=== PATIENT | male | born 1955 | race African-American/Black ===

== ENCOUNTER 2018-04-23 06:45 | Day surgery (SDC) | payer OTHER ==
[~2018-04-23] VITALS: Ht 175.3 cm; Wt 88.8 kg
[2018-04-23] MEDS ORDERED: IOHEXOL 350 MG/ML 100 ML BTL (for Cath Lab) OTHER ONE (06:46)
[2018-04-23 07:15] VITALS: BP 122/71; PULSE 53; RESP 18; O2SAT 98
[2018-04-23 07:38] LABS: BASOPHIL # 0.1 TH/MM3 (0-0.2); BASOPHIL % 0.7 % (0.0-2.0); EOSINOPHIL # 0.2 TH/MM3 (0-0.4); EOSINOPHIL % 2.4 % (0.0-4.0); HEMATOCRIT 48.5 % (39.0-51.0); HEMOGLOBIN 16.4 GM/DL (13.0-17.0); LYMPH % 29.6 % (9.0-44.0); LYMPHOCYTE # 2.1 TH/MM3 (1.0-4.8); MEAN CELL VOLUME 85.9 FL (80.0-100.0); MEAN CORPUSCULAR HEMOGLOBIN 29.1 PG (27.0-34.0); MEAN CORPUSCULAR HGB CONC 33.8 % (32.0-36.0); MEAN PLATELET VOLUME 9.9 FL (7.0-11.0); MONO % 10.8 % (0.0-8.0); MONOCYTE # 0.8 TH/MM3 (0-0.9); NEUT % 56.5 % (16.0-70.0); PLATELET COUNT 171 TH/MM3 (150-450); RED BLOOD COUNT 5.65 MIL/MM3 (4.50-5.90); RED CELL DISTRIBUTION WIDTH 13.8 % (11.6-17.2); WHITE BLOOD COUNT 7.1 TH/MM3 (4.0-11.0)
[2018-04-23] MEDS ORDERED: METO25TA3 PO (07:38)
[2018-04-23] MEDS ORDERED: PRIL20TA2 (07:38)
[2018-04-23] MEDS ORDERED: CENTCHW4 CHEW (07:38)
[2018-04-23] MEDS ORDERED: BRIL90TA PO (07:38)
[2018-04-23] MEDS ORDERED: ATOR40TA16 PO (07:38)
[2018-04-23] MEDS ORDERED: ASPI81CH6 CHEW (07:38)
[2018-04-23 07:49] LABS: PROTHROMBIN TIME - PATIENT 10.1 SEC (9.8-11.6)
[2018-04-23 07:51] LABS: BICARBONATE 26.9 MEQ/L (21.0-32.0); CALCIUM 8.7 MG/DL (8.5-10.1); CREATININE 1.06 MG/DL (0.60-1.30)
[2018-04-23] MEDS ORDERED: NS 1000P @30 MLS/HR (KVO) IV SCH (08:00)
[2018-04-23] MEDS ORDERED: ASPIRIN 325 MG TAB PO SCH (08:15)
[2018-04-23] MEDS ORDERED: HEPARIN-NS/PF INJ 1,500 ML ONE (08:22)
[2018-04-23] MEDS ORDERED: MIDAZOLAM HCL 2 MG/2 ML VIAL ONE ×2 (08:22→08:45)
[2018-04-23] MEDS ORDERED: HEPARIN SODIUM - IV 10,000 UNITS/10 ML VIAL ONE (08:39)
[2018-04-23] MEDS ORDERED: BIVALIRUDIN 250 MG VIAL ONE (08:58)
[2018-04-23] MEDS ORDERED: TICAGRELOR 90 MG TAB PO ONE (09:27)
--- NOTE | 2018-04-23 09:46 | CATHPROC ---
[employer] HIS Report Study Information Study Number Admission Scheduled Start Study Start [id number] Apr 23 2018 6:45AM 04/23/2018 Apr 23 2018 7:59AM [place] [facility] Cardiac Catheterization Admit Source Facility Department Other [facility] - Rubber Mold [facility] Physician and Clinical Staff Initial José Miguel Ledesma Paperboard Box Maker Marco Arias,LISANDRA Recorder Saira Dumas,RT(R) Scrub Kristen Philip,RT(R) Procedures Performed Procedure Location (Site) Vessel Name Angiogram LV LV Ventricle Coronary Angiograms LCA Left Coronary Coronary Angiograms RCA Right Coronary Drug Eluting Inflatio RCA Dist Right Coronary Drug Eluting Inflatio RCA Mid Right Coronary L Heart Cath Wire insertion Fem Art (right) Femoral Art Equipment Time Slab Depiler Operator Description Size Mfg Part Number Used/Scraped TRANSDUCER, SOL [id number] 08:45 PINEDA BUITRAGO * Used W/STOCKCOCK *[id number] *[id number] *[id number] PIGTAIL ANG. 145 INFINITI [id number] CATHETER *[id number] 09:27 DAIG/[employer] ANGIOSEAL, FR6 VIP FR 6 Used *[id number] 08:45 Fabbeo BLANKET,WARM AIR CCL * Used *[id number] 08:45 [employer]o PACK, CCL CUSTOM * Used *[id number] 08:45 [employer] PACER PEN, SKIN DUAL W/ RULER * Used *[id number] 09:09 MEDTRONIC STENT, 2.25 15MM JAIME 2.25 15MM [id number] 09:14 MEDTRONIC STENT, 3.0 12MM JAIME 3.0 12MM Used *[id number] 09:11 Wangdaizhijia MEDICAL 30 MARTHA INDEFLATOR Used *[id number] 08:45 [employer]m SHEATH, FR6.5 PRELUDE 11CM FR 6.5 038ACT Used *[id number] 08:45 [employer]daizh[employer]ia MEDICAL WIRE, 3MMJ .035 180CM 180CM Used *[id number] 08:45 NAMIC MANIFOLD, 4 PORT * Used *[id number] 08:45 [employer]COMED OMNIPAQUE, 350 MG, 150ML 150ML [id number] Used 09:24 NYCOMED OMNIPAQUE, 350 MG, 50ML 50ML [id number] Used WIRE, RUNTHROUGH NS FLOPPY [id number] 09:03 [employer] MEDICAL 180CM Used .014 180CM *[id number] Equipment Model, Serial, Lot Number and Expiration Data Description Model Number Serial Number Lot Number Expiration Date ANGIOFRANKLIN MCKEON [id number] 11-27-2018 STENT, 2.25 15MM JAIME [id number] 06-07-2019 STENT, 3.0 12MM JAIME [id number] 11-26-2019 History: Current Medications Medication Dosage/Unit Route Frequency Last Date/Time Taken BRILINTA LOPRESSOR Statins (any) ASA History: Allergies Allergy Reaction No Known Allergies History: Risk Factors Family History of Hypertension Dyslipidemia Previous [place] Previous Heart Failure Premature CAD No Yes No No No Prior Valve Prior PCI Prior PCIDate Prior CABG Surgery No Yes 03/06/2018 No Cerebrovascular Peripheral Artery Chronic Lung On Dialysis Diabetes Disease Disease Disease No No No No No History: Stress Tests Stress or Imaging Studies Performed Yes History: Other Current Smoker No Labs Hgb (g/dl) Hct (%) WBC (l/cumm) Platelets (thousands) 11.60-17.00 35.00-51.00 4.00-11.00 150.00-450.00 16.4 48.5 7.1 171 Glucose (mg/dl) BUN (mg/dl) Creatinine (mg/dl) BUN:Creatinine (1:x) 74.00-106.00 7.00-18.00 0.50-1.30 10.00-20.00 106 16 1.0 16 Na (meq/l) K (meq/l) 136.00-145.00 3.50-5.10 141 3.8 INR (PTT:PT) 0.90-1.10 1 CPK-MB (ng/ML) 0.50-3.60 Not Drawn Medication Medication Total Dose (Bolus/Oral) Medication Total Dosage/Unit 1% XYLOCAINE 20 mL ANGIOMAX BOLUS 13.5 mL BRILINTA 90 mg FENTANYL 50 mcg NTG (IC) 250 mcg VERSED 3 mg Medications (Bolus/Oral) Medication Time Given Dosage/Unit Administered By Reason VERSED 04/23/2018 8:41:48 AM 1 mg Marco Arias 1 mg VERSED given in lab by Marco Arias RN in Left Wrist via Peripheral IV. Ordered by Cecilio Dash FENTANYL 04/23/2018 8:42:04 AM 50 mcg Hugo, Marco 50 mcg FENTANYL given in lab by Marco Arias RN in Left Wrist via Peripheral IV. Ordered by José Miguel Dash. VERSED 04/23/2018 8:43:18 AM 1 mg Hugo, Marco 1 mg VERSED given in lab by Marco Arias RN in Left Wrist via Peripheral IV. Ordered by Cecilio Dash VERSED 04/23/2018 8:46:06 AM 1 mg Hugo, Marco 1 mg VERSED given in lab by Marco Arias RN in Left Wrist via Peripheral IV. Ordered by Cecilio Dash 1% XYLOCAINE 04/23/2018 8:46:50 AM 20 mL José Miguel Dash 20 mL 1% XYLOCAINE given in lab by José Miguel Dash in Right Groin via Subcutaneous. Ordered by José Miguel Dash. NTG (IC) 04/23/2018 9:01:13 AM 150 mcg José Miguel Dash 150 mcg NTG (IC) given in lab by José Miguel Dash in Right Groin via Intra-coronary. Ordered by José Miguel Dash. ANGIOMAX BOLUS 04/23/2018 9:02:18 AM 13.5 mL Marco Arias 13.5 mL ANGIOMAX BOLUS given in lab by Marco Arias RN in Left Wrist via Peripheral IV. Ordered by José Miguel Villegas. NTG (IC) 04/23/2018 9:17:01 AM 100 mcg José Miguel Dash 100 mcg NTG (IC) given in lab by José Miguel Dash in Right Groin via Intra-coronary. Ordered by José Miguel Dash. BRILINTA 04/23/2018 9:34:28 AM 90 mg Hugo, Marco 90 mg BRILINTA given in lab by Marco Arias RN via Oral. Ordered by José Miguel Dash. Medication (Drip) Medication Time Given Dosage/Unit Concentration/Unit Diluent (ml) Solution ANGIOMAX DRIP 04/23/2018 9:06:47 AM 1.745 mg/kg/hr 250 mg 50 NaCl .9 1.745 mg/kg/hr ANGIOMAX DRIP given in lab by Marco Arias RN in Left Wrist via Peripheral IV. Pump/D rip Flow = 31 ml/hr using NaCl .9 with a concentration of 250 mg in 50 ml. Ordered by José Miguel Dash. IV Solutions 04/23/2018 8:17:27 AM 50 mL (IV) NaCl .9 IV Solutions given in lab by Marco Arias RN in Left Wrist via Peripheral IV. Pump/Drip Flow using N aCl .9. Initial Case Assessment Cardiovascular Edema Present Skin color Skin None Normal Warm Dry Circulatory - Right Pulses Dorsalis Pedis Femoral 2 2 Scale (0,1,2,3,4,d) Circulatory - Left Pulses Dorsalis Pedis Femoral 2 2 Scale (0,1,2,3,4,d) Neurological State Oriented to time-place- Alert Moves all extremities person Chronological Log Time Study Chronological Log 8:15:30 Patient arrived via Bed. 8:17:13 Patient Name, D.O.B, / Armband Verified By R.N. 8:17:14 Consent signed by the physician and the patient and verified by the [employer] staff. 8:17:14 Pre-op and post- op instructions given; patient acknowledges understanding of instructions. 8:17:15 Verbal Stimulation=2 Physical Stimulation=2 Airway=2 Respiration=2 TOTAL=8. (0=absent, 1=li mited, 2=present) 8:17:19 Presedation assessment performed by Rubber [employer] Maker RN. 8:17:20 Patient has been NPO for More than 6Hrs. 8:17:22 Skin Breakdown- none per pt 8:17:22 Patient Warmer Placed on the Table. 8:17:23 Jf Prominences Protected 8:17:26 A # 20 IV was noted in the Wrist (left). Grade = 0 8:17:27 IV Solutions given in lab by Marco Arias, RN in Left Wrist via Peripheral IV. Pump/Drip Fl ow using NaCl .9. 8:17:28 History and physical on the chart or being dictated. Assessment: Initial Case, Edema=None, Color=Normal, Skin = Warm, Dry Right Pulses: Giuseppe Ped=2, Femoral=2 8:17:29 Left Pulses: Giuseppe Ped=2, Femoral=2 Neurological: State=Alert, Ox3, CRUZ Vitals capture started with the following parameters, Patient=Adult, Interval=5 min, Initial Pr khmjiq=549 mmHg, 8:29:40 Deflation Rate=5 mmHg, Cuff placed on Left Arm 8:30:11 HR=56 bpm, SOEX=310/80 mmhg, SpO2=99 %, Resp=16 B/min, Pain=0, Susan=10, Null=2 8:30:22 Bilateral groins prepped with 2% chlorhexidine, and draped after a 3 minute waiting time. 8:33:25 Reference ECG taken 8:34:56 MD paged 8:35:16 HR=59 bpm, FTJP=152/77 mmhg, SpO2=99.0 %, Resp=17 B/min 8:35:23 Pressure channel 1 zeroed. 8:36:26 MD arrived. 8:40:17 HR=58 bpm, XDBM=451/74 mmhg, SpO2=96.0 %, Resp=14 B/min, Pain=0, Susan=10, Null=2 8:41:48 1 mg VERSED given in lab by Marco Arias RN in Left Wrist via Peripheral IV. Ordered by José Miguel Wilburn. 8:42:04 50 mcg FENTANYL given in lab by Marco Arias RN in Left Wrist via Peripheral IV. Ordered by José Miguel Dash. Time Out. Correct patient, correct procedure, correct physician, labs, allergies, and equipment verified with rd lab technician 8:42:37 team present. Fire risk assesment completed (see hard stop sheet for coding). Time Out Concu rred by MD and individual staff in procedure. 8:43:18 1 mg VERSED given in lab by Marco Arias RN in Left Wrist via Peripheral IV. Ordered by Vance. Cosmo 8:45:18 HR=63 bpm, YQVB=053/84 mmhg, SpO2=98.0 %, Resp=14 B/min, Pain=0, Susan=10, Null=2 8:46:06 1 mg VERSED given in lab by Marco Arias RN in Left Wrist via Peripheral IV. Ordered by José Miguel Wilburn. 8:46:47 Case Start 8:46:50 20 mL 1% XYLOCAINE given in lab by José Miguel Dash in Right Groin via Subcutaneous. Ordered by Vance. Hardy 8:47:42 Access site was Right Femoral Artery. 8:48:20 A SHEATH, FR6.5 PRELUDE 11CM FR 6.5 was advanced into the Fem Art (right) using the Percutan eous technique. A JL 4.5 INFINITI CATHETER FR 6 was advanced over a wire. OMNIPAQUE, 350 MG, 150ML 150ML was use d for 8:49:04 injections. Recorded Pressure: Ao, HR=62, Condition=Condition 1 8:50:07 (Aorta) Ao 118/68/90 8:50:19 HR=57 bpm, PNSA=739/69 mmhg, SpO2=95 %, Resp=8 B/min, Pain=0, Susan=10, Null=2 8:51:13 The LCA was injected and visualized at various angles. OMNIPAQUE, 350 MG, 150ML 150ML used. 8:55:20 HR=57 bpm, CHRN=720/75 mmhg, SpO2=97.0 %, Resp=10 B/min, Pain=0, Susan=10, Null=2 8:55:44 Catheter was removed A JR 4.0 GUIDE CATHETER FR 6 was advanced over a wire. OMNIPAQUE, 350 MG, 150ML 150ML was used f or 8:57:11 injections. 9:00:17 HR=61 bpm, PXPH=076/70 mmhg, SpO2=97.0 %, Resp=13 B/min, Pain=0, Susan=10, Null=2 9:01:00 The RCA was injected and visualized at various angles. OMNIPAQUE, 350 MG, 150ML 150ML used. 9:01:13 150 mcg NTG (IC) given in lab by José Miguel Dash in Right Groin via Intra-coronary. Ordered by José Miguel Dash. 9:02:18 13.5 mL ANGIOMAX BOLUS given in lab by Marco Arias RN in Left Wrist via Peripheral IV. Ord ered by José Miguel Dash. 9:05:02 A WIRE, RUNTHROUGH NS FLOPPY .014 180CM 180CM was inserted via Fem Art (right). 9:05:18 HR=64 bpm, LHON=297/68 mmhg, SpO2=97.0 %, Resp=11 B/min, Pain=0, Susan=10, Null=2 1.745 mg/kg/hr ANGIOMAX DRIP given in lab by Hugo, Marco, RN in Left Wrist via Peripheral IV. P ump/Drip Flow = 31 9:06:47 ml/hr using NaCl .9 with a concentration of 250 mg in 50 ml. Ordered by José Miguel Dash. A STENT, 2.25 15MM JAIME 2.25 15MM was advanced through a JR 4.0 GUIDE CATHETER FR 6 over a WIRE, 9:09:49 RUNTHROUGH NS FLOPPY .014 180CM 180CM. 9:10:19 HR=64 bpm, IGIB=020/62 mmhg, SpO2=96.0 %, Resp=15 B/min, Pain=0, Susan=10, Null=2 A STENT, 2.25 15MM JAIME 2.25 15MM was deployed using a 30 MARTHA INDEFLATOR at 18 atmospheres for 4 0 seconds 9:11:14 in the RCA Dist. 9:12:15 Delivery device removed A STENT, 3.0 12MM JAIME 3.0 12MM was advanced through a JR 4.0 GUIDE CATHETER FR 6 over a WIRE, 9:14:52 RUNTHROUGH NS FLOPPY .014 180CM 180CM. 9:15:18 HR=66 bpm, AHFU=615/63 mmhg, SpO2=97.0 %, Resp=28 B/min, Pain=0, Susan=10, Null=2 A STENT, 3.0 12MM JAIME 3.0 12MM was deployed using a 30 MARTHA INDEFLATOR at 18 atmospheres for 35 seconds in 9:15:36 the RCA Mid. 9:16:19 Delivery device removed 9:17:01 100 mcg NTG (IC) given in lab by José Miguel Dash in Right Groin via Intra-coronary. Ordered by José Miguel Dash. 9:18:58 Wire removed 9:19:00 Catheter was removed A PIGTAIL ANG. 145 INFINITI CATHETER FR 6 was advanced over a wire. OMNIPAQUE, 350 MG, 150ML 1 50ML was 9:20:18 used for injections. 9:20:22 HR=65 bpm, SOQN=385/61 mmhg, SpO2=97.0 %, Resp=20 B/min, Pain=0, Susan=10, Null=2 Recorded Pressure: LV, HR=65, Condition=Condition 1 9:21:56 (Left Ventricle) LV 105/2/10 9:22:30 The LV was injected at 10 cc/sec for a total of 40. OMNIPAQUE, 350 MG, 50ML 50ML used. Recorded Pressure: LV, Ao, HR=66, Condition=Condition 1 9:23:49 (Left Ventricle) LV 92/1/10, (Aorta) Ao 111/62/83 9:24:50 Catheter was removed 9:25:21 HR=60 bpm, JJBR=621/72 mmhg, SpO2=98.0 %, Resp=10 B/min, Pain=0, Susan=10, Null=2 9:25:48 An injection in the Fem Art (right) was made through the SHEATH, FR6.5 PRELUDE 11CM FR 6.5 . 9:28:13 ANGIOSEAL, FR6 VIP FR 6 placement in the Fem Art (right) 9:28:25 Case End (Physician broke scrub) 9:28:51 Sterile dressing applied to site 9:28:52 No case complications noted. 9:28:55 Cine recording checked. 9:28:59 Holding Area notified of successful intervention. 9:29:10 Bedside Report will be given. 9:29:11 Implantable Device card placed in patient's chart. 9:29:20 A Left Heart Cath was performed. 9:30:50 HR=59 bpm, ARRM=496/74 mmhg, SpO2=98.0 %, Resp=15 B/min, Pain=0, Susan=10, Null=2 9:34:28 90 mg BRILINTA given in lab by Marco Arias RN via Oral. Ordered by José Miguel Dash. 9:35:25 HR=55 bpm, FQMG=546/74 mmhg, SpO2=98.0 %, Resp=18 B/min, Pain=0, Susan=10, Null=2 9:40:34 Patient moved to [facility] End Study - Contrast Media Used In Study Contrast Total Opened (mL) Total Used (mL) Total Wasted (mL) Omnipaque 195 195 0 End Study - Maximum Contrast Load Max Contrast Load (mL) 444.1 End Study - Radiation Exposure Fluoro Time (minutes) 9.1 End Study - Patient Disposition Complications Transferred To Interventional Outcome No Telemetry Bed successful
[2018-04-23] MEDS ORDERED: SODIUM CHLOR 0.9% 1000 ML INJ 1,000 ML IV SCH (09:47)
[2018-04-23] MEDS ORDERED: ACETAMINOPHEN 325 MG TAB PO PRN (10:00)
[2018-04-23] MEDS ORDERED: oxyCODONE/ACETAMINOPHEN 5 MG/325 MG TAB PO PRN (10:00)
[2018-04-23] MEDS ORDERED: MISC INFORMATION XX ONE (10:00)
[2018-04-23] MEDS ORDERED: SODIUM CHLORIDE 0.9% FLUSH 10 ML FLUSH IV FLUSH PRN (10:00)
--- NOTE | 2018-04-23 10:04 | MA ---
cc: José Miguel Dash MD, George MD DATE: 04/23/2018 PROCEDURES PERFORMED: 1. Left heart catheterization. 2. Left ventriculography. 3. Coronary angiography. 4. Direct stenting of the distal right coronary artery. 5. Direct stenting of the mid-right coronary artery. 6. Right femoral angiography with Angio-Seal placement. DESCRIPTION OF PROCEDURE: The patient was brought to the cardiac catheterization lab in the fasting state. The right groin was prepped and draped in sterile fashion. Using 1% lidocaine for local anesthesia, a 6.5-[place] sheath was inserted in the right femoral artery requiring only a single front wall stick. Coronary angiography was then completed using a left 4.5 Jacqueline for the left coronary artery and a 3DRC for the right coronary. Next, I used a right 4 Jacqueline guiding catheter to image the right coronary artery. Right coronary artery was then wired with a Runthrough wire. I then stented the distal vessel with a 2.25 x 15 mm [place] stent at 18 atmospheres. Angiomax was given prior to this. Then stenting of the mid-right coronary artery was performed using a 3.0 x 12 mm [place] stent at 18 atmospheres. Angiography demonstrates an outstanding result. The patient had no chest pain. An angled pigtail catheter was then used to measure left ventricular pressure followed by left ventriculography and the pullback. Angiography was then obtained of the right femoral artery via the sheath, followed by uncomplicated Angio-Seal placement. There were no complications. ESTIMATED BLOOD LOSS: 5 mL. FINDINGS: I. HEMODYNAMICS: Left ventricular pressure was 92/1 with an end-diastolic pressure of 10. Aortic pressure was 111/62 with a mean of 83. There was no gradient during pullback. II. LEFT VENTRICULOGRAPHY: Left ventriculography shows normal left ventricular function. There is no wall motion abnormality. Ejection fraction is 60%. III. CORONARY ANGIOGRAPHY: Left main coronary artery appears normal with no blockage. Left anterior descending artery has about 10% ostial disease. There is mild diffuse disease throughout the LAD. The proximal LAD; however, is widely patent. The mid to distal LAD is also widely patent. There is a spot in the mid-LAD where there is a smooth stenosis in the 30-40% range. The circumflex artery has irregularities only with no stenosis over 5%. The right coronary artery demonstrates somewhat mild diffuse disease. There is an 80% mid-stenosis and a 70% distal stenosis on a curve. The right coronary artery is dominant. IV. RESULTS OF STENTING: Following stenting of the distal and mid-right coronary artery lesions, there was no residual stenosis and normal flow. The diagonal was widely patent with a widely patent stent. The stent actually does not cover the ostium of the diagonal, but the ostium of the diagonal was patent. CONCLUSIONS: 1. Normal hemodynamics. 2. Normal left ventricular function. 3. Excellent short-term results from the previous left anterior descending and diagonal stents. 4. Severe disease of the right coronary artery. 5. Successful stenting of the distal and mid-right coronary artery with good results. PLAN: The patient will continue on his aspirin and Brilinta. We will allow him to be discharged home later today. MD YAJAIRA Rausch/RIO , 09:46 AM , 10:03 AM
--- NOTE | 2018-04-23 20:14 | EKG ---
Date Performed: 04/23/2018 Time Performed: 07:50:46 PTAGE: 62 years EKG: Sinus bradycardia. Normal ECG except for rate PREVIOUS TRACING : 12/11/1993 12.11 Since the previous tracing, no significant change not ed DOCTOR: Rhea Avila Interpretating Date/Time 04/23/2018 20:14:03
[2018-04-23] MEDS ORDERED: SODIUM CHLORIDE 0.9% FLUSH 10 ML FLUSH IV FLUSH SCH (21:00)
[2018-04-24] MEDS ORDERED: TICAGRELOR 90 MG TAB PO SCH (09:00)
[2018-04-24] MEDS ORDERED: ASPIRIN 81 MG CHEW TAB PO SCH (09:00)
== END 2018-04-23 17:15 | disposition home or self-care (01) ==
LOC: HDOC 06:45 → HDIC 06:46 → HDOC 17:15
PROVIDERS: ATTEND Internal Medicine Cardiovascular Disease
DX: I25.119 Atherosclerotic heart disease of native coronary artery with unspecified angina pectoris (principal); I25.2 Old myocardial infarction; K21.9 Gastro-esophageal reflux disease without esophagitis; E78.00 Pure hypercholesterolemia, unspecified; M72.0 Palmar fascial fibromatosis [Dupuytren]; E66.9 Obesity, unspecified; Z68.28 Body mass index [BMI] 28.0-28.9, adult; R07.89 Other chest pain
CPT/HCPCS: 80048; 85025; 85610; 85730; 92928; 93005; 93458; 99152; 99153; C1760; C1769; C1874; C1887; C1893; G0269; J0583; J1644; J2250; J3010; Q9967